=== PATIENT | male | born 1960 | race African-American/Black ===

== ENCOUNTER 2018-07-03 12:59 | Emergency (ER) | payer MEDICARE | END 2018-07-03 13:29 | disposition home or self-care (01) | LOC: SCSER 12:59 | DX: S16.1XXA Strain of muscle, fascia and tendon at neck level, initial encounter (principal); S66.901A Unspecified injury of unspecified muscle, fascia and tendon at wrist and hand level, right hand, initial encounter; E11.9 Type 2 diabetes mellitus without complications; I10 Essential (primary) hypertension; F41.9 Anxiety disorder, unspecified; F43.10 Post-traumatic stress disorder, unspecified; X50.1XXA Overexertion from prolonged static or awkward postures, initial encounter; Y93.H2 Activity, gardening and landscaping | CPT/HCPCS: 99282 ==

== ENCOUNTER 2025-02-03 13:25 | Emergency (ER) | payer OTHER, MEDICARE ==
[2025-02-03] MEDS ORDERED: Cyclobenzaprine 10 MG TAB ONE (14:36)
== END 2025-02-03 16:25 | disposition home or self-care (01) ==
LOC: ERS 13:25
DX: M25.511 Pain in right shoulder (principal); M54.2 Cervicalgia; M62.838 Other muscle spasm; E11.9 Type 2 diabetes mellitus without complications; I10 Essential (primary) hypertension; I25.10 Atherosclerotic heart disease of native coronary artery without angina pectoris; Z95.1 Presence of aortocoronary bypass graft; V49.9XXA Car occupant (driver) (passenger) injured in unspecified traffic accident, initial encounter
CPT/HCPCS: 70450; 72125